=== PATIENT | male | born 1955 | race Caucasian/White ===

== ENCOUNTER 2021-04-19 00:10 | Day surgery (SDC) | payer MEDICARE, OTHER, SELFPAY ==
[2021-04-01 13:48] VITALS: BMI 31.2
--- NOTE | 2021-04-01 14:10 | PC.NURSE ---
Upon PST phonecall, patient states that he sees a new PCP that he does not know the name of. Informed patient to try to find out info on newly seen PCP for reports to be sent the day of his colonoscopy procedure. Patient also states he uses [facility]. Unable to find this pharmacy in computer system.
[2021-04-19 08:15] VITALS: BP 115/75; PULSE 75; RESP 17; TEMP 36.6; O2SAT 99; BMI 30.7
[2021-04-19] MEDS: LACTATED RINGERS 1,000 ML 150 ML IV CONT (08:25)
--- NOTE | 2021-04-19 08:27 | WPDGICN ---
Assessment and Plan Assessment and plan (1) Encounter for screening colonoscopy: Code(s): Z12.11 - Encounter for screening for malignant neoplasm of colon Status: Acute Assessment and Plan: Patient presents today for screening colonoscopy. He appears to be at average risk for colon polyps. GI Consult Note Consult date/time: 04/19/21 08:27 HPI: Roman Singh Jr. is a 65 year old male Presents for screening colonoscopy. Patient's current weight appetite and bowel movements are normal. He denies abdominal pain. He has had no bleeding. Family history is noncontributory. Presents today for neoplasia screening. Review of Systems Review of Systems: All systems reviewed & are unremarkable except as noted in HPI and below PMFSH Social History Social History (System 10/31/19 @ 09:41 by Chinyere Ramon) Smoking status: Never smoker Alcohol intake: never Substance use: never Substance use type: does not use Living arrangements: with family Spiritual care concerns: No Meds Home Medications and Allergies Home Medications Medication Instructions Recorded Confirmed Type rosuvastatin [Crestor] 40 mg PO DAILY 04/01/21 04/19/21 History Allergies Allergy/AdvReac Type Severity Reaction Status Date / Time No Known Allergies Allergy Verified 04/19/21 08:14 Vital Signs Vital Signs - 24 hr 04/19/21 08:15 Temperature 98 F Pulse Rate 75 Respiratory Rate 17 Blood Pressure 115/75 Pulse Oximetry 99 Exam Narrative: Physical exam reveals patient be alert. Vital signs are stable. HEENT exam is unremarkable. Patient is anicteric. Lungs are clear to auscultation and percussion. Heart is without murmur or extra sounds. Abdominal exam bowel sounds are present soft nontender with no organomegaly. Digital external rectal exam is normal.
--- NOTE | 2021-04-19 08:32 | WPDANESEPPF ---
Anes - Initial Pre Proc Eval Procedure: Operation Date: 04/19/21 09:30 Proposed Procedures p Screening Colonoscopy - Vel Rodriguez MD Date/Time: 04/19/21 08:32 Surgeon: Vel Rodriguez MD Pre Op Diagnosis: neoplasm screening Patient Data Age: 65 Gender: M Height: 1.75 m Weight: 94.2 kg Last Vital Signs Temp 36.6 C 04/19/21 08:15 Pulse 75 04/19/21 08:15 Resp 17 04/19/21 08:15 BP 115/75 04/19/21 08:15 Pulse Ox 99 04/19/21 08:15 Allergies Allergy/AdvReac Type Severity Reaction Status Date / Time No Known Allergies Allergy Verified 04/19/21 08:14 Home Medications Medication Instructions Recorded Confirmed Type rosuvastatin [Crestor] 40 mg PO DAILY 04/01/21 04/19/21 History Patient hx anesthesia problems: none Family hx anesthesia problems: none Results Review: All pre-operative results and documents have been reviewed as part of the pre-operative evaluation. [facility] Past Medical History Medical History (Updated 04/19/21 @ 08:33 by Brandon Ram MD) Hyperlipidemia Obesity Surgical History Surgical History (Updated 04/19/21 @ 08:35 by Brandon Ram MD) H/O colonoscopy Social History Social History Smoking status: Never smoker Alcohol intake: never Substance use: never Substance use type: does not use Living arrangements: with family Spiritual care concerns: No Anes - Eval Final PreProcedure Day of Procedure 04/19/21 08:32 Patient weight: obese Heart: regular rate and rhythm Lungs: clear to auscultation Airway: Mallampati scale class II Neurological: alert and oriented Last oral intake: >/= 8 hours ASA classification: II Emergent: no Anesthetic plan: proceed Anesthesia type and monitoring: general GIVS and standard monitoring Results Review: All pre-operative results and documents have been reviewed as part of the pre-operative evaluation. Informed Consent: The patient's anesthetic plan and its attendant risks and benefits were discussed with the patient/family/POA. Questions were solicited and answers provided to the satisfaction of the patient/family/POA.
[2021-04-19 09:22] VITALS: BP 84/56; PULSE 61; RESP 16; O2SAT 99
[2021-04-19 09:32] VITALS: BP 82/54; PULSE 67; RESP 18; O2SAT 98
[2021-04-19 09:42] VITALS: BP 95/68; PULSE 60; RESP 16; O2SAT 98
== END 2021-04-19 10:04 | disposition home or self-care (01) ==
PROVIDERS: Visit Provider Internal Medicine Gastroenterology
PROC: 0DJD8ZZ Inspection of Lower Intestinal Tract, Via Natural or Artificial Opening Endoscopic (ICD-10-PCS; CPT 45378; principal; 2021-04-19 09:30)
DX: Z12.11 Encounter for screening for malignant neoplasm of colon (principal); K63.5 Polyp of colon; E78.5 Hyperlipidemia, unspecified; E66.9 Obesity, unspecified; Z68.30 Body mass index [BMI] 30.0-30.9, adult
CPT/HCPCS: 45385; 88305; J2001; J2704; J7120